=== PATIENT | male | born 1945 | race Caucasian/White ===

== ENCOUNTER 2020-03-19 08:27 | Outpatient (CLI) | payer MEDICARE, OTHER, SELFPAY ==
[2020-03-19 09:38] LABS: Alanine Aminotransferase 37 U/L (4-50); Aspartate Amino Transferase 31 U/L (17-59); Cholesterol 122 mg/dL (0-200); HDL Direct 29 mg/dL; Triglycerides 120 mg/dL (<150)
[2020-03-19 09:49] LABS: LDL Cholesterol Direct 67 mg/dL
== END 2020-03-19 08:28 | disposition home or self-care (01) ==
LOC: ANHLAB 08:31
PROVIDERS: PCP Family Medicine; Visit Provider Internal Medicine Cardiovascular Disease
DX: I25.118 Atherosclerotic heart disease of native coronary artery with other forms of angina pectoris (principal); E78.5 Hyperlipidemia, unspecified
CPT/HCPCS: 36415; 80061; 84450; 84460

== ENCOUNTER → 2021-06-16 01:25 | Outpatient (CLI) | payer MEDICARE, OTHER, SELFPAY ==
[2021-06-16 17:06] LABS: SARS-CoV-2 RNA PCR Negative
== END ==
PROVIDERS: PCP Internal Medicine
DX: R05 Cough (principal); Z20.822 Contact with and (suspected) exposure to COVID-19
CPT/HCPCS: C9803; U0003; U0005